=== PATIENT | male | born 2000 | race African-American/Black ===

== ENCOUNTER 2022-12-22 04:54 | Emergency (ER) | payer MEDICAID ==
[~2022-12-22] VITALS: Ht 188 cm; Wt 152.0 kg
[2022-12-22 05:03] VITALS: BP 160/84; PULSE 86; RESP 18; O2SAT 98
[2022-12-22] MEDS ORDERED: PIPERACILLIN/TAZOBACTAM 3.375GM/50ML PREMIX IV NR (06:00)
[2022-12-22] MEDS ORDERED: KETOROLAC 30MG/ML VIAL IV ONE (06:00)
[2022-12-22] MEDS ORDERED: SODIUM CHLORIDE 0.9% 500 ML IV ONE (06:00)
[2022-12-22] MEDS ORDERED: ACETAMINOPHEN 325MG TABLET PO ONE (07:30)
[2022-12-22 08:02] VITALS: TEMP 98.2
[2022-12-22] MEDS ORDERED: ACET-2708 MT (10:41)
[2022-12-22] MEDS ORDERED: IBUP-1525 MT (10:41)
== END 2022-12-22 10:55 | disposition home or self-care (01) ==
LOC: ER 04:54
DX: S52.602A Unspecified fracture of lower end of left ulna, initial encounter for closed fracture (principal); V89.2XXA Person injured in unspecified motor-vehicle accident, traffic, initial encounter; Y93.89 Activity, other specified; Y92.89 Other specified places as the place of occurrence of the external cause; Y99.8 Other external cause status
CPT/HCPCS: 73090; 73110; 99284; Z7610; J7040